=== PATIENT | female | born 1945 | race Caucasian/White ===

== ENCOUNTER 2018-05-06 19:14 | Inpatient (IN) | payer MEDICARE, OTHER ==
[~2018-05-06] VITALS: Ht 167.6 cm; Wt 63.6 kg
--- NOTE | 2018-05-06 19:23 | ED.ADGEN ---
Past History Past Medical History: Anxiety, CHF, Depression, Heart Disease, Other Past Surgical History: Hip Replacement, Other Adult General Chief Complaint Chief Complaint ".. I ve been vomiting.. and alana short of breath today..." HPI HPI Patient is a 72 year old female who presents with hx of nausea, vomiting and hypoxia.. Pt. a resident of [facility]. Pt. has not been able to eat today because of frequent vomiting. Pt. has hx of HTN, GERD, MS, Deconditioning, Depression, Anemia. Pt. follows with Dr. Dominguez as primary. Pt. not normally on oxygen. Pt. requires 4 Lit. NC to maintain sat 90%. Review of Systems Review of Systems Constitutional: Denies fever or chills [] Eyes: Denies change in visual acuity, redness, or eye pain [] HENT: Denies nasal congestion or sore throat [] Respiratory: Complaints of shortness of breath [] Cardiovascular: No additional information not addressed in HPI [] GI: Denies abdominal pain,, bloody stools or diarrhea []Nausea and vomiting : Denies dysuria or hematuria [] Musculoskeletal: Denies back pain or joint pain []Weakness- chronic Integument: Denies rash or skin lesions [] Neurologic: Denies headache, focal weakness or sensory changes [] Endocrine: Denies polyuria or polydipsia [] All other systems were reviewed and found to be within normal limits, except as documented in this note. Family History Family History Non-contributory Current Medications Current Medications Current Medications Medications (Trade) Dose Ordered Sig/Chadd Start Time Stop Time Status Last Admin Dose Admin Albuterol/ Ipratropium (Duoneb) 3 ml QID 05/07/18 09:00 UNV Enoxaparin Sodium (Lovenox 60mg Syringe) 60 mg BID 05/07/18 09:00 UNV Famotidine (Pepcid Vial) 20 mg 1X ONCE 05/06/18 19:30 05/06/18 19:40 DC 05/06/18 20:02 20 MG Furosemide (Lasix) 40 mg DAILY06 05/07/18 06:00 UNV Levofloxacin (Levaquin) 500 mg 1X ONCE 05/06/18 20:30 05/06/18 20:31 DC 05/06/18 20:39 500 MG Levofloxacin/ Dextrose 100 ml @ 500 mls/hr DAILY 05/07/18 09:00 UNV Lidocaine HCl (Xylocaine 2% Topical 30gm Tube) 30 luis m STK-MED ONCE 05/06/18 21:01 05/06/18 21:02 DC Methylprednisolone Sodium Succinate (SOLU-Medrol 40MG VIAL) 40 mg DAILY 05/07/18 09:00 UNV Methylprednisolone Sodium Succinate (SOLU-Medrol 125MG VIAL) 125 mg 1X ONCE 05/06/18 20:00 05/06/18 20:01 DC 05/06/18 20:02 125 MG Ondansetron HCl (Zofran Odt) 8 mg 1X ONCE 05/06/18 19:30 05/06/18 19:40 DC 05/06/18 20:02 8 MG Sodium Chloride 500 ml @ As Directed STK-MED ONCE 05/06/18 20:34 05/06/18 20:35 DC Vancomycin HCl (Vanco Per Pharmacy) 1 each PRN DAILY PRN 05/06/18 21:45 UNV Vancomycin HCl (Vancomycin) 1 gm STK-MED ONCE 05/06/18 20:34 05/06/18 20:35 DC Vancomycin HCl 1.75 gm/Sodium Chloride 500 ml @ 250 mls/hr 1X ONCE 05/06/18 20:45 05/06/18 22:44 05/06/18 20:39 250 MLS/HR Vancomycin HCl 1 gm/Sodium Chloride 250 ml @ 250 mls/hr 1X ONCE 05/06/18 20:30 05/06/18 20:32 DC See Nursing for home meds. Allergies Allergies Allergies Coded Allergies Type Severity Reaction Last Updated Verified Penicillins Allergy Intermediate 05/06/18 Yes silver sulfadiazine Allergy Intermediate 05/06/18 Yes Physical Exam Physical Exam Constitutional: moderately acute distress, non-toxic appearance. [] HENT: Normocephalic, atraumatic, bilateral external ears normal, oropharynx moist, no oral exudates, nose normal. Lips stained black? Fe Eyes: PERRLA, EOMI, conjunctiva pale, no discharge. [] Neck: Normal range of motion, no tenderness, supple, no stridor. [] Cardiovascular:Heart rate regular rhythm, no murmur [] Lungs & Thorax: Bilateral breath sounds clear to auscultation [] Abdomen: Bowel sounds normal, soft, no tenderness, no masses, no pulsatile masses. [Old surgical scars. No gross blood on rectal. ( Brown stool) Skin: Warm, dry, no erythema, no rash. Poor turgor. Back: No tenderness, no CVA tenderness. [] Extremities: No tenderness, no cyanosis, no clubbing, ROM intact, no edema. [ Arthritic changes. Scar lt.Hip. Neurologic: Alert and oriented X 3, no gross motor or sensory function deficits from baseline, Hx. of generalized weakness- MS. no gross focal deficits noted. [] Psychologic: Affect anxious, judgement normal, mood depressed. Current Patient Data Vital Signs Vital Signs Date Time Temp Pulse Resp B/P (MAP) Pulse Ox O2 Delivery O2 Flow Rate FiO2 05/06/18 20:26 90 18 167/90 (115) 93 Nasal Cannula 4.0 05/06/18 19:27 98.6 Lab Results Laboratory Tests Test 05/06/18 19:25 05/06/18 19:49 05/06/18 20:30 05/06/18 20:36 Blood pH 7.41 (7.35-7.45) Blood Gas PCO2 32 mmHg (35-45) L Blood Gas PO2 61 mmHg (71-100) L Blood Gas HCO3 21 mmol/L (22-26) L Arterial Bld O2 Saturation (Calc) 92 % (92-99) FiO2 36 % White Blood Count 29.5 x10^3/uL (4.0-11.0) H Red Blood Count 5.73 x10^6/uL (3.50-5.40) H Hemoglobin 16.5 g/dL (12.0-15.5) H Hematocrit 50.0 % (36.0-47.0) H Mean Corpuscular Volume 87 fL (79-100) Mean Corpuscular Hemoglobin 29 pg (25-35) Mean Corpuscular Hemoglobin Concent 33 g/dL (31-37) Red Cell Distribution Width 16.1 % (11.5-14.5) H Platelet Count 294 x10^3/uL (140-400) Neutrophils (%) (Auto) 91 % (31-73) H Lymphocytes (%) (Auto) 3 % (24-48) L Monocytes (%) (Auto) 6 % (0-9) Eosinophils (%) (Auto) 0 % (0-3) Basophils (%) (Auto) 0 % (0-3) Neutrophils # (Auto) 26.7 x10^3uL (1.8-7.7) H Lymphocytes # (Auto) 0.9 x10^3/uL (1.0-4.8) L Monocytes # (Auto) 1.7 x10^3/uL (0.0-1.1) H Eosinophils # (Auto) 0.0 x10^3/uL (0.0-0.7) Basophils # (Auto) 0.1 x10^3/uL (0.0-0.2) Platelet Estimate Pending Prothrombin Time 11.4 SEC (9.4-11.4) Prothrombin Time INR 1.1 (0.9-1.1) PTT 27 SEC (23-33) D-Dimer (Lilian) 3.32 mg/L (0.00-0.50) H Sodium Level 138 mmol/L (136-145) Potassium Level 3.4 mmol/L (3.5-5.1) L Chloride Level 100 mmol/L (98-107) Carbon Dioxide Level 23 mmol/L (21-32) Anion Gap 15 (6-14) H Blood Urea Nitrogen 28 mg/dL (7-20) H Creatinine 1.1 mg/dL (0.6-1.0) H Estimated GFR (Cockcroft-Gault) 48.6 Glucose Level 134 mg/dL (70-99) H Calcium Level 8.9 mg/dL (8.5-10.1) Magnesium Level 2.1 mg/dL (1.8-2.4) Total Bilirubin 1.3 mg/dL (0.2-1.0) H Direct Bilirubin 0.5 mg/dL (0.0-0.2) H Aspartate Amino Transferase (AST) 86 U/L (15-37) H Alanine Aminotransferase (ALT) 81 U/L (14-59) H Alkaline Phosphatase 177 U/L (46-116) H Creatine Kinase 86 U/L (26-192) Creatine Kinase MB (Mass) 0.5 ng/mL (0.0-3.6) Creatine Kinase MB Relative Index 0.6 % (0-4) Troponin I Quantitative 0.019 ng/mL (0-0.055) FQ-Upo-T-Type Natriuretic Peptide 4720 pg/mL (0-124) H Total Protein 8.5 g/dL (6.4-8.2) H Albumin 3.3 g/dL (3.4-5.0) L Lipase 338 U/L (73-393) Lactic Acid Level 3.2 mmol/L (0.4-2.0) H Urine Collection Type U cath Urine Color Yellow Urine Clarity Hazy Urine pH 6.5 Urine Specific [place] >=1.030 Urine Protein >100 mg/dl (NEG-TRACE) Urine Glucose (UA) Neg mg/dL (NEG) Urine Ketones (Stick) Trace mg/dL (NEG) Urine Blood Large (NEG) Urine Nitrite Neg (NEG) Urine Bilirubin Neg (NEG) Urine Urobilinogen Dipstick 2 mg/dL (0.2 mg/dL) Urine Leukocyte Esterase Trace (NEG) Urine RBC 20-40 /HPF (0-2) Urine WBC >40 /HPF (0-4) Urine Squamous Epithelial Cells Occ /LPF Urine Bacteria 0 /HPF (0-FEW) Urine Hyaline Casts Mod /HPF Urine Mucus Mod /LPF Urine Opiates Screen Neg (NEG) Urine Methadone Screen Neg (NEG) Urine Barbiturates Neg (NEG) Urine Phencyclidine Screen Neg (NEG) Urine Amphetamine/Methamphetamine Neg (NEG) Urine Benzodiazepines Screen Neg (NEG) Urine Cocaine Screen Neg (NEG) Urine Cannabinoids Screen Neg (NEG) Urine Ethyl Alcohol Neg (NEG) EKG EKG I interpretation of EKG shows a sinus rhythm at 88 bpm there is some bimodal P- wave's and a left axis. Some nonspecific inferior changes & anterior lateral changes.[] Radiology/Procedures Radiology/Procedures My interpretation acute abdomen shows decreased lung volumes. Increased cephalization consistent with CHF. Wide mediastinum. Cardiomegaly. Does have very distended gastric with food product and air. Has a hiatal hernia. Abdomen shows markedly degenerative joint changes of spine as well as some angulation and compression fractures . Patient has some isolated bowel loops. Does have findings of left hip hardware.[] Course & Med Decision Making Course & Med Decision Making Pertinent Labs and Imaging studies reviewed. (See chart for details) Discussed presentation,testing and tx. plan with Dr. Tom- Admit, further eval and tx. Pt. currently refusing cath and OG or NG for decompression. Pt. agrees to antibiotics and lasix. Pt. declining further radiograph- CT ect. at this time . [] Final Impression Final Impression 1. Respiratory Failure[]- Hypoxia 2. Hx. MS 3. Nausea and vomiting 4. MS 5. CHF- BNP 4720 6. Hypokalemia 7. Elevated BUN/Creat 8. Elev. Wilber. , Total and Direct, Alk. Phos. 9. Ileus- 10. Neg. Inspiratory F. = -9 Dragon Disclaimer Dragon Disclaimer This electronic medical record was generated, in whole or in part, using a voice recognition dictation system. THANH CONNER MD May 06, 2018 19:23
[2018-05-06] MEDS ORDERED: FAMOTIDINE 20 MG/2 ML VIAL IVP ONE (19:30)
[2018-05-06] MEDS ORDERED: ONDANSETRON ODT 4 MG TAB.RAPDIS PO ONE (19:30)
[2018-05-06 19:36] LABS: BGAS PH 7.41 (7.35-7.45)
--- NOTE | 2018-05-06 19:43 | EKG ---
[address] [address] Test Date: 2018-05-06 Test Time: 19:38:44 Pat Name: ILSA NGUYEN Department: Room: Gender: F Runner Man: DAVID : 1945 Requested By: THANH CONNER Order Number: [id number] Reading MD: Kael Gamez MD Measurements Intervals [place] Rate: 88 P: 28 [place]: 166 QRS: -22 QRSD: 82 T: 9 QT: 378 QTc: 461 Interpretive Statements SINUS RHYTHM PRIOR INFERIOR INFARCT Electronically Signed On 05-08-2018 9:11:44 CDT by Kael Gamez MD
[2018-05-06] MEDS ORDERED: methylPREDNISolone SOD SUCC PF 125 MG/2 ML VIAL. IV ONE (20:00)
[2018-05-06] MEDS: IV NORMAL SALINE 1,000ML 1,000 ML IV SCH (20:02)
[2018-05-06 20:12] LABS: BASO # 0.1 x10^3/uL (0.0-0.2); BASO % 0 % (0-3); EOS % 0 % (0-3); HEMOGLOBIN 16.5 g/dL (12.0-15.5); LYMPH # 0.9 x10^3/uL (1.0-4.8); LYMPH % 3 % (24-48); MEAN CORPUSCULAR HEMOGLOBIN 29 pg (25-35); MEAN CORPUSCULAR HGB CONC 33 g/dL (31-37); MEAN CORPUSCULAR VOLUME 87 fL (79-100); MONO # 1.7 x10^3/uL (0.0-1.1); MONO % 6 % (0-9); NEUT # 26.7 x10^3uL (1.8-7.7); NEUT % 91 % (31-73); PLATELET COUNT 294 x10^3/uL (140-400); RED BLOOD COUNT 5.73 x10^6/uL (3.50-5.40); RED CELL DISTRIBUTION WIDTH 16.1 % (11.5-14.5); WHITE BLOOD COUNT 29.5 x10^3/uL (4.0-11.0)
[2018-05-06] MEDS ORDERED: levoFLOXacin 500 MG TABLET PO ONE (20:30)
[2018-05-06] MEDS ORDERED: VANCOMYCIN 1 GM in IV NORMAL SALINE 250ML 250 ML IV ONE (20:30)
[2018-05-06] MEDS ORDERED: VANCOMYCIN 1 GM VIAL. ONE (20:34)
[2018-05-06] MEDS ORDERED: IV NORMAL SALINE 500ML 500 ML ONE (20:34)
[2018-05-06 20:42] LABS: ALBUMIN 3.3 g/dL (3.4-5.0); CALCIUM 8.9 mg/dL (8.5-10.1); CREATININE 1.1 mg/dL (0.6-1.0); DIRECT BILIRUBIN 0.5 mg/dL (0.0-0.2); GFR 48.6; MAGNESIUM 2.1 mg/dL (1.8-2.4); POTASSIUM 3.4 mmol/L (3.5-5.1); TOTAL BILIRUBIN 1.3 mg/dL (0.2-1.0); TOTAL PROTEIN 8.5 g/dL (6.4-8.2)
[2018-05-06] MEDS ORDERED: VANCOMYCIN 1.75 GM in IV NORMAL SALINE 500ML 500 ML IV ONE (20:45)
[2018-05-06] MEDS ORDERED: FUROSEMIDE 40 MG/4 ML VIAL IVP ONE (21:00)
[2018-05-06] MEDS ORDERED: LIDOCAINE 2% TOPICAL JELLY 30GM TUBE. TP ONE (21:01)
[2018-05-06 21:13] LABS: BACTERIA,URINE 0 /HPF (0-FEW); BILIRUBIN,URINE NEG (NEG); CLARITY,URINE HAZY; COLOR,URINE YELLOW; GLUCOSE,URINE NEG (NEG); HYALINE CASTS, URINE MOD /HPF; NITRITE,URINE NEG (NEG); RBC,URINE 20-40 /HPF (0-2); SQUAMOUS EPITHELIAL CELL,UR OCC /LPF; UROBILINOGEN,URINE 2 mg/dL (0.2 mg/dL); WBC,URINE >40 /HPF (0-4)
[2018-05-06 21:35] LABS: AMPHETAMINE/METHAMPHETAMINE NEG (NEG); BARBITURATES NEG (NEG); BENZODIAZEPINES NEG (NEG); CANNABINOIDS NEG (NEG); COCAINE NEG (NEG); METHADONE NEG (NEG); OPIATES NEG (NEG); PHENCYCLIDINE NEG (NEG)
[2018-05-06 22:31] LABS: % BANDS 17 % (0-9); % LYMPHS 2 % (24-48); % MONOS 10 % (0-10)
[2018-05-06 22:32] LABS: PLT ESTIMATE ADEQUATE (ADEQUATE)
[2018-05-06 23:06] LABS: FECAL OB PT NEGATIVE (NEG)
[2018-05-07] VITALS (14 sets, daily range): BP systolic 138–190; BP diastolic 65–89
[2018-05-07] MEDS ORDERED: FAMO20TA5 PO (02:21)
[2018-05-07] MEDS ORDERED: MINE120C TP (02:21)
[2018-05-07] MEDS ORDERED: CHOL100014 PO (02:21)
[2018-05-07] MEDS ORDERED: AMLO5TAB2 PO (02:21)
[2018-05-07] MEDS ORDERED: ACET325T9 PO (02:21)
[2018-05-07] MEDS ORDERED: FERR325T14 PO (02:21)
[2018-05-07] MEDS ORDERED: FERR-3 PO (02:21)
[2018-05-07] MEDS ORDERED: INUL2TAB4 PO (02:24)
[2018-05-07] MEDS ORDERED: OMEG-33 PO (02:24)
[2018-05-07] MEDS ORDERED: LISI-334 PO (02:47)
[2018-05-07] MEDS ORDERED: NYST1000 PO (02:47)
[2018-05-07] MEDS ORDERED: METO50TA29 PO (02:47)
[2018-05-07] MEDS ORDERED: LOPE2CAP88 PO (02:47)
[2018-05-07] MEDS ORDERED: MICO10PO MC (02:47)
[2018-05-07] MEDS ORDERED: NIAC500T PO (02:47)
[2018-05-07] MEDS ORDERED: PSYL0.5242 PO (02:50)
[2018-05-07] MEDS ORDERED: TRAM50TA PO (02:50)
[2018-05-07] MEDS ORDERED: PARO40TA61 PO (02:50)
[2018-05-07] MEDS ORDERED: ONDA4TAB7 PO (02:51)
[2018-05-07] MEDS: IV NORMAL SALINE 1,000ML 1,000 ML IV SCH (03:59)
[2018-05-07] MEDS: IPRATRPIUM/ALBUTEROL 0.5/2.5MG 3 ML NEBU. NEB SCH ×4 (05:43→21:05)
[2018-05-07] MEDS ORDERED: FUROSEMIDE 40 MG/4 ML VIAL IVP SCH (06:00)
[2018-05-07 06:16] LABS: BASO % 0 % (0-3); EOS % 0 % (0-3); HEMATOCRIT 44.1 % (36.0-47.0); HEMOGLOBIN 14.5 g/dL (12.0-15.5); LYMPH # 1.7 x10^3/uL (1.0-4.8); LYMPH % 6 % (24-48); MEAN CORPUSCULAR HEMOGLOBIN 29 pg (25-35); MEAN CORPUSCULAR HGB CONC 33 g/dL (31-37); MEAN CORPUSCULAR VOLUME 89 fL (79-100); MONO # 1.2 x10^3/uL (0.0-1.1); MONO % 4 % (0-9); NEUT # 24.9 x10^3uL (1.8-7.7); NEUT % 90 % (31-73); PLATELET COUNT 239 x10^3/uL (140-400); RED BLOOD COUNT 4.98 x10^6/uL (3.50-5.40); RED CELL DISTRIBUTION WIDTH 16.2 % (11.5-14.5); WHITE BLOOD COUNT 27.8 x10^3/uL (4.0-11.0)
[2018-05-07 06:26] LABS: CALCIUM 8.5 mg/dL (8.5-10.1); CREATININE 1.1 mg/dL (0.6-1.0); GFR 48.6; POTASSIUM 3.4 mmol/L (3.5-5.1)
[2018-05-07] MEDS ORDERED: POTASSIUM CHLORIDE 20 MEQ TABLET.ER. PO ONE (08:35)
--- NOTE | 2018-05-07 08:42 | RAD ---
Acute abdominal series with single view chest 05/06/2018 7:52 PM INDICATION: Hypoxia, abdominal pain COMPARISON: Chest radiograph March 17, 2013 TECHNIQUE: Single view of the chest, upright view of the abdomen and supine views of abdomen are provided. FINDINGS: The cardiomediastinal silhouette is within normal limits. There are no pleural effusions. There is no pulmonary vascular congestion. There is no pneumothorax. The lungs are clear. Mild chronic interstitial changes are visualized. There is no free intraperitoneal air. There is a moderate-sized hiatal hernia containing a gas-filled portion of the gastric antrum. Stomach is distended with gas and debris. There is a paucity of small bowel gas. Colonic bowel loops appear normal in caliber. Small volume stool is noted in the rectum. Levoconvex scoliosis of the thoracolumbar spine is noted. Advanced degenerative changes of the lumbar spine are noted. Left hip hardware is noted from prior fracture repair. IMPRESSION: Gaseous distention of the stomach with a moderate-sized hiatal hernia containing the gastric antrum. Findings may be seen with gastric outlet obstruction secondary to hernia. Further evaluation with CT may be of benefit. Mild interstitial changes are noted within the lungs, likely chronic. Electronically signed by: Jenny Mancilla MD (05/07/2018 8:39 AM) [facility]
[2018-05-07] MEDS ORDERED: LISINOPRIL 20 MG TABLET PO SCH (09:00)
[2018-05-07] MEDS ORDERED: NON FORMULARY ITEM (Inulin (Fiber Gummies) 2 GM) PO SCH (09:00)
[2018-05-07] MEDS ORDERED: ACETAMINOPHEN 325 MG TABLET PO PRN (09:00)
[2018-05-07] MEDS ORDERED: PSYLLIUM HUSK 0.52 GM PO SCH (09:00)
[2018-05-07] MEDS ORDERED: POTASSIUM CHLORIDE 20 MEQ/15 ML ORAL LIQUID. PO SCH (09:00)
[2018-05-07] MEDS: MINERAL OIL/PETROLATUM TOPICAL CREAM 113GM JAR. TP SCH (09:00)
[2018-05-07] MEDS ORDERED: METOPROLOL SUCC 24HR ER 50 MG TAB.ER.24H. PO SCH (09:00)
[2018-05-07] MEDS: MICONAZOLE NITRATE 2% TOPICAL POWDER 85GM JAR. TP SCH ×2 (09:00→20:41)
[2018-05-07] MEDS: OMEGA-3 FATTY ACIDS/FISH OIL 1,000 MG CAPSULE. PO SCH (09:10)
[2018-05-07] MEDS: amLODIPine BESYLATE 5 MG TABLET PO SCH (09:11)
[2018-05-07] MEDS: PARoxetine 20 MG TABLET PO SCH (09:12)
[2018-05-07] MEDS: ENOXAPARIN ** NOTE DOSE ** SYRINGE SQ SCH ×2 (09:12→20:46)
[2018-05-07] MEDS: methylPREDNISolone SOD SUCC PF 40 MG/ML VIAL. IV SCH (09:12)
[2018-05-07] MEDS: FAMOTIDINE 20 MG TABLET PO SCH (09:12)
[2018-05-07] MEDS: FERROUS SULFATE 325 MG TABLET. PO SCH (09:12)
[2018-05-07] MEDS ORDERED: ONDANSETRON ODT 4 MG TAB.RAPDIS PO PRN (09:15)
[2018-05-07] MEDS ORDERED: LOPERAMIDE 2 MG CAPSULE PO PRN (09:15)
[2018-05-07] MEDS: LACTOBACILLUS RHAMNOSUS GG 1 CAPSULE. PO SCH ×2 (09:30→20:45)
[2018-05-07] MEDS: VANCOMYCIN PER PHARMACY MC PRN (12:51)
[2018-05-07] MEDS ORDERED: NYSTATIN 100,000 UNITS/ML ORAL SUSPENSION 60ML BOTTLE. SWSW PRN (13:00)
[2018-05-07] MEDS ORDERED: VANCOMYCIN PER PHARMACY MC PRN (15:15)
[2018-05-07] MEDS ORDERED: IV NORMAL SALINE 500ML 500 ML IV ONE (15:15)
[2018-05-07] MEDS ORDERED: LABETALOL 100 MG/20 ML VIAL. IV PRN (15:30)
[2018-05-07] MEDS: POTASSIUM CL 20MEQ D5-0.2%NACL 1,000 ML IV SCH (15:51)
[2018-05-07] MEDS: MEROPENEM 500 MG in IV NORMAL SALINE 50ML 50 ML IV SCH ×2 (15:51→23:43)
[2018-05-07] MEDS: traMADol 50 MG TABLET PO PRN (20:40)
[2018-05-07] MEDS: NIACIN ER 500 MG TABLET.ER PO SCH (20:46)
[2018-05-07] MEDS: VANCOMYCIN 1 GM in IV NORMAL SALINE 250ML 250 ML IV SCH (21:47)
--- NOTE | 2018-05-07 22:28 | HP ---
ADMIT DATE: 05/06/2018 HISTORY OF PRESENT ILLNESS: The patient is a 72-year-old female patient, resident at [facility], who came to the Emergency Room with recurrent episode of nausea and vomiting. She has not been able to eat because of frequent vomiting. She apparently is known to have hypertension, gastroesophageal reflux disease, multiple sclerosis, deconditioning, depression, and anemia. She is not normally on oxygen, but required 4 liters of oxygen to maintain her oxygen saturation above 90%. She was evaluated in the Emergency Room and was admitted with acute hypoxic respiratory failure, recurrent bouts of nausea, vomiting, and multiple sclerosis. She was also dehydrated with elevated BUN and creatinine, and elevated liver enzyme. She was started on IV fluid, was given also antibiotic and was admitted for further evaluation. PAST MEDICAL HISTORY: Significant for hypertension, gastroesophageal reflux disease, multiple sclerosis, generalized weakness. PAST SURGICAL HISTORY: Significant for tonsillectomy, adenoidectomy, bilateral broken legs status post open reduction and internal fixation, appendectomy, cholecystectomy. ALLERGIES: She is allergic to PENICILLIN and SULFA drugs as well as SILVER SULFADIAZINE. MEDICATIONS: She is currently on following medications: She is on ferrous sulfate 325 mg once a day, nystatin suspension 5 mL swish and swallow every 6 hours, niacin 500 mg extended release or Niaspan one tablet at bedtime, omega-3 fatty acid 1 tablet 1000 mg daily. She is on metoprolol succinate 50 mg once a day, amlodipine besylate 5 mg once a day, lisinopril 20 mg once a day, tramadol 50 mg every 6 hours, acetaminophen 650 mg every 6 hours, paroxetine 40 mg daily, loperamide 2 mg as needed for diarrhea. She is on fiber gummies 2 grams chewable tablet once a day, psyllium husk 0.52 grams capsule once a day, ondansetron 4 mg every 8 hours, famotidine 20 mg once a day, miconazole nitrate twice a day, Eucerin cream applied topically daily, cholecalciferol (vitamin D3) 1000 International Units once a day. FAMILY HISTORY: She has one sister who was at the age of 82. Her mother because of a tumor and father because of alcohol cirrhosis. SOCIAL HISTORY: She is single, has no children. She does not smoke, drink alcohol or use any recreational drugs. REVIEW OF SYSTEMS: The patient denied any blurring of vision, cataract, glaucoma or macular degeneration. Denied any earache, tinnitus, or sensorineural deafness. Denied any nosebleeds, stuffy nose or postnasal drip. Denied any sore throat, sore tongue, toothache, hoarseness of voice or difficulty swallowing. Did complain of recurrent bouts of nausea and vomiting. Denied any abdominal pain. Denied any diarrhea or constipation. Did have bowel movement, it was semi-solid according to her yesterday. Denied any hematemesis, melena or hematochezia. She drank cranberry juice and the vomitus is purple in color. Denied any dysuria, frequency or hematuria. Denied any chest pain, shortness of breath, orthopnea, or paroxysmal nocturnal dyspnea. Denied any cough, phlegm or hemoptysis. Denied any chills, rigors or fever. PHYSICAL EXAMINATION: GENERAL: On arrival to the Emergency Room, she looked somewhat pale, but no jaundice, cyanosis, or thyromegaly. No jugular venous distension. No limb edema. VITAL SIGNS: Her heart rate was 86, blood pressure was 173/81, temperature was 98.4, respiratory rate was 18 and oxygen saturation was 91% on 4 liters of oxygen. HEAD, EYES, EARS, NOSE AND THROAT: Showed normocephalic, atraumatic. NECK: Supple. HEART: Showed normal first and second sounds. No gallop, rub or murmur. CHEST: Clear to auscultation. No crepitation or rhonchi. ABDOMEN: Distended, soft, and nontender. No guarding or rigidity. No organomegaly. Hernial orifice intact. Bowel sounds normal. NEUROLOGIC: She is awake, alert, responding appropriately. All her cranial nerves intact. She moves upper extremities to much good extent than lower extremities. She is mostly bedbound, chair bound. LABORATORY DATA: Her lab work on arrival to the Emergency Room showed that her serum sodium was 138, potassium 3.4, chloride 100, bicarbonate 23, anion gap of 15, BUN 28, creatinine 1.1, estimated GFR was 48 mL per minute. Her glucose 134, calcium was 8.9, magnesium 2.1. Total bilirubin was 1.3. AST, ALT, alkaline phosphatase are all elevated. Her CK-MB slightly elevated as well as beta natriuretic peptide at 4720. Her total protein was 8.5, albumin was 3.3. Lipase was slightly elevated at 338. TSH was normal at 0.358. Her white cell count was high at 29,500, hemoglobin 16.5, hematocrit 50, MCV 87 and platelet count of 294,000. Her prothrombin time was 11.4, INR 1.1, aPTT was 27 and D-dimer was 3.32 mg/dL. Urinalysis showed the urine was yellow, hazy with a pH of 6.5, specific gravity 1.030. There was large amount of protein, negative for glucose, trace of ketones, large amount of blood, negative for nitrite and bilirubin. There was trace of leukocyte esterase, 20-40 rbc's, more than 40 wbc's, and moderate amount of bacteria. Toxicology screen was negative. Her acute abdomen series showed that there is no free, the cardiomediastinal silhouette is within normal limits. There is no pleural effusion. There is no pulmonary vascular congestion. There is no pneumothorax. The lungs are clear. Mild chronic interstitial changes are visualized. There is no free intraperitoneal air. There is a moderate sized hiatal hernia containing a gas filled portion of the gastric antrum. Stomach is distended with gas and debris. There is paucity of small bowel gas. Colonic bowel loops appear normal in caliber. Small volume stool is noted in the rectum. Levoconvex scoliosis of the thoracolumbar spine is noted. Advanced degenerative changes of the lumbar spine are noted. Left hip hardware is noted from prior fracture repair. IMPRESSION: The patient has marked gaseous distention of the stomach with a moderate sized hiatal hernia containing the gastric antrum. Finding may be seen with gastric outlet obstruction secondary to hernia. Further evaluation with CT scan may be of benefit. Mild interstitial changes noted within the lungs, likely chronic. PLAN: The patient was admitted to continue with IV fluid and IV antibiotic, and decide on further management accordingly. ROB SILVEIRA MD DR: ZACARIAS/herminia JOB#: [id number] / [id number]
--- NOTE | 2018-05-07 22:28 | RAD ---
Examination: Bilateral Lower Extremity Venous Doppler Ultrasound History: Elevated d-dimer, hypoxia Comparison: None Procedure: Live scale, color flow 2D and spectal waveform analysis images are obtained with and without compression in the area of the common femoral vein, superficial femoral vein - femoral vein junction, main femoral vein (superficial femoral vein) and popliteal vein. Veins of the proximal calf are also imaged. Findings: There is normal duplex flow, color flow and compressibility of all visualized vein segments. No evidence of deep venous thrombus is present. The calf veins on the left could not be clearly identified. Impression: No evidence of DVT in the visualized bilateral lower extremity venous system. The calf veins on the left could not be clearly identified. Electronically signed by: Gen Solomon MD (05/07/2018 2:48 PM) [id number]
--- NOTE | 2018-05-07 22:28 | RAD ---
CT abdomen pelvis with oral contrast only Indication: Abdominal pain Technique: After administration of oral contrast only, CT imaging was performed of the abdomen and pelvis, multiplanar reconstruction images submitted. No intravenous contrast was given. One or more of the following individualized dose reduction techniques were utilized for this examination: 1. Automated exposure control 2. Adjustment of the mA and/or kV according to patient size 3. Use of iterative reconstruction technique. Comparison: None Findings: There are infiltrates of the lower lobes of lungs bilaterally, some air bronchograms greater on the right. There is moderate to large hiatal hernia, also contains a segment of the gastroduodenal junction although the majority of the body of the stomach is not contained in the hernia sac. There is relative wall thickening of the descending duodenum proximally. There is some gastric distention. However there is some oral contrast in segments of the nondilated small bowel, also to the level of the colon, no evidence of complete obstruction. There is no free air or free fluid. No focal abnormality is identified of the spleen, liver, pancreas. Gallbladder is not seen. There is large calculus in the left renal pelvis about 2.3 cm, mild left hydronephrosis. There are some smaller calculi of the inferior left kidney. There is mild left hydroureter greater proximally, no distal ureteral calculus identified. There is minimal gas in the urinary bladder lumen. There is no right hydronephrosis or renal calculus. There is artifact created by dynamic compression nail and intramedullary sandy of the proximal left femur. There is moderate lumbar levoscoliosis and multilevel lumbar degenerative disc disease. IMPRESSION: 1. There is moderate to large hiatal hernia, also includes a segment of the gastroduodenal junction although a majority of the body of the stomach is not contained in the hernia sac. There is nonspecific relative wall thickening of the proximal duodenum could be due to underlying inflammatory change/duodenitis. There is some gastric distention although no evidence of complete obstruction as there is contrast in segments of the small bowel and colon. 2. There is large left renal calculus in the renal pelvis with mild hydronephrosis, smaller calculi inferiorly of the left kidney. 3. There are infiltrates of the lower lobes of the lungs bilaterally greater on the right. 4. There is minimal gas in the urinary bladder lumen. This could be due to recent catheterization if corresponding history. If there is not been recent instrumentation, infection with gas-forming organism is not excluded. Electronically signed by: Rachid Ray MD (05/07/2018 5:28 PM) [id number]
--- NOTE | 2018-05-08 01:48 | PN ---
DATE: 05/06/2018 SUBJECTIVE: The patient is resting slightly propped up in bed, in no apparent distress. She continued to require oxygen 2 liters, she has no further episodes of nausea and vomiting. Denied any abdominal pain; however, she also did not pass any gas or bowel movement since yesterday. OBJECTIVE: GENERAL: When examining her, she looked well and was clearly in no apparent respiratory distress, pale, not jaundiced, cyanosis, or thyromegaly. No jugular venous distension. No lower limb edema. VITAL SIGNS: Her heart rate was 92, blood pressure was 151/70, temperature was 98, respiratory rate was 18, and oxygen saturation was 92% on 2 liters of oxygen. HEAD, EYES, EARS, NOSE AND THROAT: Normocephalic, atraumatic. NECK: Supple. HEART: Showed normal first and second heart sounds. No gallop, rub or murmur. CHEST: Clear to auscultation. No crepitation or rhonchi. ABDOMEN: Distended, soft, and nontender. NEUROLOGIC: She is awake, alert, responding appropriately. Cranial nerves intact. She moves upper extremities too much good extent than lower extremities. She is mostly bedbound, chair bound. Her intake over the last 24 hours was 1500. LABORATORY DATA: Her lab work this morning showed a white cell count 27,800, hemoglobin 14.5, hematocrit 44, MCV 89, and platelet count 239,000 with normal manual differential. Her chemistry showed a serum sodium 139, potassium 3.4, chloride 109, bicarbonate 27, anion gap of 7, BUN 32, creatinine 1.1, estimated GFR was 48 mL per minute. Her glucose 137, calcium was 8.5, lactic acid is down to 1.4. ASSESSMENT: 1. Recurrent bouts of nausea, vomiting with possible gastric outlet obstruction. 2. Acute hypoxic respiratory failure with marked leukocytosis, making the likelihood of aspiration pneumonia very high, given that she is not on any oxygen at the longterm, has longstanding multiple sclerosis with generalized weakness. PLAN: My plan is to discontinue the Lasix and give her a bolus of normal saline and continue with the D5 half normal with 20 mEq of potassium chloride. Continue with vancomycin and meropenem as she is allergic to PENICILLIN. I have arranged for her to have a CT scan of the abdomen and pelvis with oral contrast only and if there is no evidence of bowel obstruction or gastric outlet obstruction, we will advance her diet and repeat all her lab works tomorrow and hopefully eventually transfer her back to [facility]. ROB SILVEIRA MD DR: ZACARIAS/herminia JOB#: [id number] / [id number]
[2018-05-08 05:01] VITALS: BP 152/78
[2018-05-08] MEDS: IPRATRPIUM/ALBUTEROL 0.5/2.5MG 3 ML NEBU. NEB SCH ×4 (05:31→20:53)
[2018-05-08 06:54] LABS: HEMATOCRIT 35.7 % (36.0-47.0); HEMOGLOBIN 11.7 g/dL (12.0-15.5); RED BLOOD COUNT 4.06 x10^6/uL (3.50-5.40); RED CELL DISTRIBUTION WIDTH 15.8 % (11.5-14.5); WHITE BLOOD COUNT 16.5 x10^3/uL (4.0-11.0)
[2018-05-08 07:00] LABS: ALBUMIN 2.4 g/dL (3.4-5.0); ALBUMIN/GLOBULIN RATIO 0.6 (1.0-1.7); CALCIUM 8.1 mg/dL (8.5-10.1); GFR 54.2; POTASSIUM 3.7 mmol/L (3.5-5.1); TOTAL BILIRUBIN 0.6 mg/dL (0.2-1.0); TOTAL PROTEIN 6.2 g/dL (6.4-8.2)
[2018-05-08] MEDS: MEROPENEM 500 MG in IV NORMAL SALINE 50ML 50 ML IV SCH ×3 (08:37→23:39)
[2018-05-08] MEDS: methylPREDNISolone SOD SUCC PF 40 MG/ML VIAL. IV SCH (08:38)
[2018-05-08] MEDS: amLODIPine BESYLATE 5 MG TABLET PO SCH (08:41)
[2018-05-08] MEDS: MINERAL OIL/PETROLATUM TOPICAL CREAM 113GM JAR. TP SCH (09:00)
[2018-05-08] MEDS: FERROUS SULFATE 325 MG TABLET. PO SCH (09:00)
[2018-05-08] MEDS: FAMOTIDINE 20 MG TABLET PO SCH (09:00)
[2018-05-08] MEDS: PARoxetine 20 MG TABLET PO SCH (09:00)
[2018-05-08] MEDS: ENOXAPARIN ** NOTE DOSE ** SYRINGE SQ SCH ×2 (09:00→20:49)
[2018-05-08] MEDS: OMEGA-3 FATTY ACIDS/FISH OIL 1,000 MG CAPSULE. PO SCH (09:00)
[2018-05-08] MEDS: MICONAZOLE NITRATE 2% TOPICAL POWDER 85GM JAR. TP SCH ×2 (09:00→20:51)
[2018-05-08] MEDS: LACTOBACILLUS RHAMNOSUS GG 1 CAPSULE. PO SCH ×2 (09:00→20:48)
[2018-05-08] MEDS: POTASSIUM CL 20MEQ D5-0.2%NACL 1,000 ML IV SCH ×2 (10:33→20:47)
[2018-05-08 11:13] VITALS: BP 169/79
[2018-05-08 15:10] VITALS: BP 160/78
[2018-05-08 19:38] VITALS: BP 155/75
[2018-05-08] MEDS: traMADol 50 MG TABLET PO PRN (20:49)
[2018-05-08] MEDS: NIACIN ER 500 MG TABLET.ER PO SCH (20:49)
[2018-05-08 21:07] LABS: VANC TR 9.9 mcg/mL (10.0-20.0)
[2018-05-08] MEDS: VANCOMYCIN 1 GM in IV NORMAL SALINE 250ML 250 ML IV SCH (22:01)
[2018-05-08 22:18] VITALS: BP 167/73
[2018-05-08 23:05] VITALS: BP 154/81
--- NOTE | 2018-05-08 23:12 | PN ---
DATE: 05/08/2018 SUBJECTIVE: The patient is resting slightly propped up in bed, no apparent distress. She is awake, alert. Yesterday, she stated that she does not want to this anymore. She does not want to get in and out of the hospitals and even and plan would like to go on hospice; however, I explained her today that the CT scan did not show any obstruction; however, it did show that she has bilateral lung infiltrate, that is the reason why she has pneumonia and required oxygen by nasal cannula as she normally does not. PHYSICAL EXAMINATION: GENERAL: When I examined her, she looked pale, but no jaundice, cyanosis, or thyromegaly. No jugular venous distension. No lower limb edema. VITAL SIGNS: Her heart rate was 77, blood pressure 152/78, temperature was 98.3, respiratory rate was 20, and oxygen saturation was 92% on 2 liters of oxygen by nasal cannula. HEENT: Examination of the head, eyes, ears, nose and throat showed normocephalic, atraumatic. NECK: Supple. HEART: Showed normal first and second heart sounds with no gallop, rub or murmur. CHEST: Clear to auscultation. No crepitation or rhonchi. ABDOMEN: Distended, soft, nontender. No guarding or rigidity. No organomegaly. Her hernial orifices are intact. Bowel sounds normal. NEUROLOGIC: She is awake, alert. All her cranial nerves are intact. She moves upper extremities somewhat much to get extent than the lower extremities. She is mostly bedbound, chair bound. Her intake over the last 24 hours was 1500. No output was recorded. LABORATORY DATA: Her lab work as of this morning showed a white cell count 16,500, hemoglobin 11.7, hematocrit 36, MCV 88, and platelet count of 153,000. Serum sodium was 136, potassium 3.7, chloride 104, bicarbonate 26, anion gap of 6, BUN 36, creatinine 1, estimated GFR was 54 mL per minute. Her glucose was 102, calcium was 8.1. Total bilirubin, AST, ALT, alkaline phosphatase was normal. Total protein was 6.2, albumin 2.4. Her prothrombin time was 11.4, INR 1.1, aPTT was 27, and D-dimer was 3.32. Urinalysis showed that she has more than 40 WBCs, trace of leukocyte esterase, negative for nitrites. ASSESSMENT: 1. Recurrent bouts of nausea, vomiting with possible gastric outlet obstruction; however, CT scan did not show large hiatus hernia including part of the stomach, but no gastric outlet obstruction. 2. Acute hypoxic respiratory failure with marked leukocytosis. 3. Bilateral lung infiltrate most likely due to aspiration pneumonia. 4. Longstanding multiple sclerosis, generalized weakness. 5. Possible urinary tract infection. PLAN: I had a lengthy discussion again this morning with her and that the patient wanted to continue treatment and said that she does not want any hospice and we will continue with IV antibiotic in the form of levofloxacin and vancomycin as well as meropenem and if the cultures remain negative tomorrow, we will discontinue the vancomycin, continue with meropenem and levofloxacin. ROB SILVEIRA MD DR: ZACARIAS/herminia JOB#: [id number] / [id number]
[2018-05-09] MEDS: VANCOMYCIN PER PHARMACY MC PRN (00:49)
[2018-05-09] MEDS: IPRATRPIUM/ALBUTEROL 0.5/2.5MG 3 ML NEBU. NEB SCH ×4 (05:26→20:13)
[2018-05-09 05:32] VITALS: BP 156/76
[2018-05-09 07:12] LABS: HEMATOCRIT 36.7 % (36.0-47.0); HEMOGLOBIN 12.1 g/dL (12.0-15.5); RED BLOOD COUNT 4.18 x10^6/uL (3.50-5.40); RED CELL DISTRIBUTION WIDTH 16.2 % (11.5-14.5); WHITE BLOOD COUNT 16.8 x10^3/uL (4.0-11.0)
[2018-05-09 07:13] LABS: CALCIUM 8.3 mg/dL (8.5-10.1); CREATININE 0.8 mg/dL (0.6-1.0); GFR 70.1
[2018-05-09] MEDS: MINERAL OIL/PETROLATUM TOPICAL CREAM 113GM JAR. TP SCH (09:00)
[2018-05-09] MEDS: MEROPENEM 500 MG in IV NORMAL SALINE 50ML 50 ML IV SCH ×3 (09:33→23:06)
[2018-05-09] MEDS: LACTOBACILLUS RHAMNOSUS GG 1 CAPSULE. PO SCH ×2 (09:35→19:39)
[2018-05-09] MEDS: PARoxetine 20 MG TABLET PO SCH (09:35)
[2018-05-09] MEDS: OMEGA-3 FATTY ACIDS/FISH OIL 1,000 MG CAPSULE. PO SCH (09:35)
[2018-05-09] MEDS: FAMOTIDINE 20 MG TABLET PO SCH (09:36)
[2018-05-09] MEDS: amLODIPine BESYLATE 5 MG TABLET PO SCH (09:37)
[2018-05-09] MEDS: FERROUS SULFATE 325 MG TABLET. PO SCH (09:38)
[2018-05-09] MEDS: methylPREDNISolone SOD SUCC PF 40 MG/ML VIAL. IV SCH (09:38)
[2018-05-09] MEDS: MICONAZOLE NITRATE 2% TOPICAL POWDER 85GM JAR. TP SCH ×2 (09:39→19:40)
[2018-05-09] MEDS: ENOXAPARIN ** NOTE DOSE ** SYRINGE SQ SCH (09:39)
[2018-05-09 11:06] VITALS: BP 150/72
[2018-05-09 15:04] VITALS: BP 158/66
--- NOTE | 2018-05-09 15:19 | PN ---
DATE: 05/09/2018 SUBJECTIVE: The patient is resting slightly propped up in bed, in no apparent respiratory distress. She is definitely feeling much better, more awake, alert, very cooperative and compliant with her care and medication. OBJECTIVE: GENERAL: When I examined her, she looked pale, no jaundice or cyanosis. No lymphadenopathy, no thyromegaly. No jugular venous distension. No lower limb edema. VITAL SIGNS: Her heart rate was 75, blood pressure was 156/76, temperature was 98.7, respiratory rate was 20 and oxygen saturation was 92% on 2 L of oxygen. HEAD, EYES, EARS, NOSE AND THROAT: Normocephalic, atraumatic. NECK: Supple. HEART: Showed normal first and second sounds. No gallop, rub or murmur. CHEST: Clear to auscultation. No crepitation or rhonchi. ABDOMEN: Distended, soft, nontender. No guarding or rigidity. No organomegaly. Hernial orifice intact. Bowel sounds normal. NEUROLOGIC: She was awake, alert, responding appropriately. All cranial nerves intact. She moves extremities without difficulty. She moves her upper extremities without difficulty. She has longstanding multiple sclerosis. She is mostly bedbound, chair bound. Her intake over the last 24 hours was 1000. No output was recorded. LABORATORY DATA: Her lab work this morning shows a white cell count of 16,800, hemoglobin 12, hematocrit 36, MCV 88 and platelet count of 176,000. Her chemistry showed a serum sodium 136, potassium 4, chloride 105, bicarbonate 26, anion gap of 4, BUN 25, creatinine 0.8, estimated GFR was 70 mL per minute. Her glucose 112, calcium was 8.3. Total bilirubin, AST, ALT, alkaline phosphatase were normal. Total protein 6.2, albumin 2.4. ASSESSMENT: 1. Recurrent bouts of nausea, vomiting with possible gastric outlet obstruction; however, CT scan showed only large hiatal hernia that included part of the stomach with no gastric outlet obstruction. The patient is tolerating her food without any further episodes of nausea and vomiting. 2. Acute hypoxic respiratory failure with marked leukocytosis. 3. Bilateral lung infiltrate, most likely to aspiration pneumonia. 4. Longstanding multiple sclerosis, generalized weakness. 5. Possible urinary tract infection; however, urine culture has grown only 10,000-25,000 colony forming units per mL of Proteus mirabilis. Her blood culture is so far negative. PLAN: My plan is to continue with IV antibiotic. Continue with IV fluid and hopefully tomorrow, we can discontinue if the cultures are negative and she can hopefully be discharged back to [place] on oral levofloxacin. ROB SILVEIRA MD DR: ZACARIAS/herminia JOB#: [id number] / [id number]
[2018-05-09] MEDS ORDERED: VANCOMYCIN 1 GM in IV NORMAL SALINE 250ML 250 ML IV SCH (16:00)
[2018-05-09] MEDS: NIACIN ER 500 MG TABLET.ER PO SCH (19:39)
[2018-05-09] MEDS: POTASSIUM CL 20MEQ D5-0.2%NACL 1,000 ML IV SCH ×2 (19:39→19:40)
[2018-05-09 19:40] VITALS: BP 164/79
[2018-05-09] MEDS ORDERED: levoFLOXacin 500 MG TABLET PO SCH (21:00)
[2018-05-09 23:00] VITALS: BP 156/87
[2018-05-10] MEDS: IPRATRPIUM/ALBUTEROL 0.5/2.5MG 3 ML NEBU. NEB SCH ×2 (05:40→10:53)
[2018-05-10 06:23] LABS: HEMATOCRIT 37.9 % (36.0-47.0); HEMOGLOBIN 12.7 g/dL (12.0-15.5); RED BLOOD COUNT 4.35 x10^6/uL (3.50-5.40); WHITE BLOOD COUNT 14.7 x10^3/uL (4.0-11.0)
[2018-05-10 06:29] LABS: CALCIUM 8.4 mg/dL (8.5-10.1); CREATININE 0.7 mg/dL (0.6-1.0); GFR 81.8; POTASSIUM 3.8 mmol/L (3.5-5.1)
[2018-05-10 06:35] VITALS: BP 160/88
[2018-05-10] MEDS: MEROPENEM 500 MG in IV NORMAL SALINE 50ML 50 ML IV SCH (08:22)
[2018-05-10] MEDS: FERROUS SULFATE 325 MG TABLET. PO SCH (08:24)
[2018-05-10] MEDS: OMEGA-3 FATTY ACIDS/FISH OIL 1,000 MG CAPSULE. PO SCH (08:24)
[2018-05-10] MEDS: LACTOBACILLUS RHAMNOSUS GG 1 CAPSULE. PO SCH (08:24)
[2018-05-10] MEDS: FAMOTIDINE 20 MG TABLET PO SCH (08:24)
[2018-05-10] MEDS: PARoxetine 20 MG TABLET PO SCH (08:24)
[2018-05-10] MEDS: amLODIPine BESYLATE 5 MG TABLET PO SCH (08:24)
[2018-05-10] MEDS: MICONAZOLE NITRATE 2% TOPICAL POWDER 85GM JAR. TP SCH (08:26)
[2018-05-10] MEDS: MINERAL OIL/PETROLATUM TOPICAL CREAM 113GM JAR. TP SCH (08:26)
[2018-05-10] MEDS: POTASSIUM CL 20MEQ D5-0.2%NACL 1,000 ML IV SCH (08:32)
[2018-05-10] MEDS ORDERED: predniSONE 10 MG TABLET PO SCH (09:00)
[2018-05-10] MEDS ORDERED: ENOXAPARIN 40 MG/0.4 ML SYRINGE. SQ SCH (09:00)
--- NOTE | 2018-05-10 10:26 | DS ---
DATE OF DISCHARGE: 05/10/2018 HOSPITAL COURSE: The patient is a 72-year-old female patient, resident at [facility], who was admitted with recurrent bouts of nausea, vomiting. She also was extremely hypoxic, requiring 4 liters of oxygen. Normally, she is not on any oxygen. Further evaluation showed that she has bilateral pneumonia, questionable urinary tract infection and acute kidney injury and marked leukocytosis. She was treated with IV fluid, IV antibiotic and oxygen supplementation and did well. She has been afebrile throughout her stay here. Her oxygen requirement has improved gradually from 4 liters. She is now maintaining her oxygen saturation 91-92% on room air. Her white cell count is trending down from 29,000-14,000 and a decision was made to discharge her back to [facility] to continue with the treatment with oral antibiotic. PHYSICAL EXAMINATION: GENERAL: When I saw her today, she looked well and was clearly in no apparent respiratory distress, slightly pale, but no jaundice, cyanosis, or thyromegaly. No jugular venous distension. No limb edema. VITAL SIGNS: Her heart rate was 96, blood pressure 164/79, temperature was 98.3, respiratory rate was 18, and oxygen saturation was 92% on room air. HEAD, EYES, EARS, NOSE AND THROAT: Normocephalic, atraumatic. NECK: Supple. HEART: Showed normal first and second sounds. No gallop, rub or murmur. CHEST: Showed central trachea, equal bilateral chest expansion, air entry, vesicular sounds, very few crepitation mostly posteriorly. I could not appreciate any rhonchi. ABDOMEN: Distended, soft, nontender. NEUROLOGIC: She is awake, alert, responding appropriately. Her cranial nerves intact. She moves upper extremities to much good extent than lower extremities. She has longstanding multiple sclerosis with functional paraplegia. She is mostly bedbound, chair bound. Her intake was 1000, no output was recorded. LABORATORY DATA: As of this morning, her white cell count was 14,700, hemoglobin 13, hematocrit 39, MCV 87 and platelet count of 180,000. Her serum sodium was 137, potassium 3.8, chloride 103, bicarbonate 28, anion gap of 6, BUN 21, creatinine 0.7, estimated GFR was 82 mL per minute. Her glucose was 96, her calcium was 8.4, her prothrombin time was 11.4, INR 1.1, aPTT was 27. D-dimer was 3.32. Urinalysis showed the urine was yellow, hazy with a pH of 6.5, specific gravity of 1.030. There was moderate amount of protein, negative for glucose, trace amount of ketones, large amount of blood and trace leukocyte esterase. There were 20-40 rbc's, more than 40 wbc's, and no bacteria. Her toxic screen was negative. Her blood cultures are so far negative and her urine culture has grown Proteus mirabilis sensitive to cephalosporins, ampicillin and SULFA DRUGS. Unfortunately, she is allergic to PENICILLIN and SULFA DRUGS. DISCHARGE MEDICATIONS: [facility] [place] to continue on cefuroxime 250 mg twice a day for 7 days, Flagyl 250 mg 3 times a day for 7 days, continue on Tylenol 650 mg every 6 hours, amlodipine 5 mg once a day, cholecalciferol, vitamin D 1000 units once a day, famotidine 20 mg once a day, ferrous sulfate 325 mg once a day, Fiber Gummies 2 grams chewable tablet once a day, lisinopril 20 mg once a day, loperamide 2 mg every 4 hours as needed for diarrhea, metoprolol succinate 50 mg once a day, miconazole nitrate applied topically twice a day, Eucerin cream applied topically twice a day, Niaspan 500 mg extended release tablet once a day at bedtime, nystatin 100,000 units per 1 mL oral suspension every 6 hours, omega 3 fatty acid 1 capsule once a day, ondansetron for Zofran 4 mg every 8 hours, paroxetine 40 mg once a day, psyllium husk 0.52 grams p.o. daily, tramadol 50 mg every 8 hours. FINAL DISCHARGE DIAGNOSES: 1. Recurrent bouts of nausea, vomiting with questionable gastric outlet obstruction; however, CT scan showed only large hiatal hernia that included part of the stomach with no gastric outlet obstruction. The patient is tolerating her food without any further episodes of nausea or vomiting. 2. Acute hypoxic respiratory failure, requiring oxygen supplementation that has improved. She is now on room air, maintaining her oxygen saturation at 91-92%. 3. Healthcare-associated pneumonia with bilateral lung infiltrate, likely to aspiration pneumonia. 4. Longstanding multiple sclerosis with generalized weakness. 5. Urinary tract infection with growth of Proteus mirabilis. PLAN: To be discharged back to continue with oral antibiotic, tapering course of steroids and all her other medications. ROB SILVEIRA MD DR: ZACARIAS/herminia JOB#: [id number] / [id number]
[2018-05-10 11:05] VITALS: BP 164/82
[2018-05-10 14:54] VITALS: BP 137/78
[2018-05-12 12:31] LABS: % SEGS 71 % (35-66)
== END 2018-05-10 15:35 | DRG 177 ==
LOC: ER 19:14 → ICU 21:00 → 1 SOUTH 05-07 18:03
PROVIDERS: ADMIT Internal Medicine; ATTEND Internal Medicine
DX: J69.0 Pneumonitis due to inhalation of food and vomit (principal); J96.01 Acute respiratory failure with hypoxia; N39.0 Urinary tract infection, site not specified; K56.7 Ileus, unspecified; N17.9 Acute kidney failure, unspecified; E86.0 Dehydration; F32.9 Major depressive disorder, single episode, unspecified; G35 Multiple sclerosis; I11.0 Hypertensive heart disease with heart failure; I50.9 Heart failure, unspecified; K21.9 Gastro-esophageal reflux disease without esophagitis; K44.9 Diaphragmatic hernia without obstruction or gangrene; D72.829 Elevated white blood cell count, unspecified; B96.4 Proteus (mirabilis) (morganii) as the cause of diseases classified elsewhere; Y95 Nosocomial condition; Z96.649 Presence of unspecified artificial hip joint; F41.9 Anxiety disorder, unspecified; E87.6 Hypokalemia; Z90.49 Acquired absence of other specified parts of digestive tract; Z90.89 Acquired absence of other organs; Z88.0 Allergy status to penicillin; Z88.2 Allergy status to sulfonamides; Z79.899 Other long term (current) drug therapy
CPT/HCPCS: 36415; 74022; 74176; 80048; 80053; 80076; 80202; 80307; 81001; 82274; 82553; 82803; 83605; 83690; 83735; 83880; 84443; 84484; 85007; 85025; 85027; 85045; 85379; 85610; 85730; 86850; 86900; 86901; 87040; 87086; 87186; 87641; 93005; 93970; 94640; 96365; 96366; 96375; J1650; J1940; J1956; J2185; J2920; J2930; J3370; J3490; J7040; J7050; J7512; J7620; Q0162; S0028; 99285-25; G0479; J7030

== ENCOUNTER 2021-05-04 12:46 | Emergency (ER) | payer OTHER ==
[~2021-05-04] VITALS: Ht 320 cm; Wt 63.0 kg
[~2021-05-04 12:46] MED LIST: ACET325T9 PO; AMLO-186 PO; CHOL100014 PO; FAMO20TA5 PO; FERR-3 PO; FERR325T14 PO; INUL2TAB4 PO; LISI20TA18 PO; LOPE-101 PO; METO50TA29 PO; MICO10PO MC; MINE120C TP; NIAC500T PO; NYST1000 PO; OMEG-33 PO; ONDA4TAB7 PO; PARO40TA61 PO; PSYL0.5242 PO; TRAM50TA PO
--- NOTE | 2021-05-04 12:57 | PHYS DOC ---
Past History Past Medical History: Anxiety, CHF, Depression, Heart Disease, Other Past Surgical History: Hip Replacement, Other Alcohol Use: None Drug Use: None Adult General HPI HPI Patient is a 75-year-old female presenting from local intermediate for decreased urine output. Reports this is been going on for past 2 or 3 days, admits to poor p.o. intake and subsequent urination with last known urination occurring at least 48 hours prior to arrival. She denies any trauma, recent sickness or major change in health. She states she thinks her medications have all been stable. Has history of multiple sclerosis, hypertension, GERD, major depressive disorder, anxiety Per accompanying documents. Remaining history is somewhat limited due to history of cognitive communication deficit. She denies prior history of hemodialysis or needing to see any kidney doctors, her paper states she is full CODE STATUS. Per EMS report, intermediate was unable to obtain IV access and subsequently could not straight cath patient and so she was sent to our ER for evaluation Review of Systems Review of Systems Fourteen body systems of review of systems have been reviewed. See HPI for pertinent positives and negative responses, other ruby all other systems are negative, non-pertinent or non-contributory Allergies Allergies Allergies Coded Allergies Type Severity Reaction Last Updated Verified Penicillins Allergy Intermediate 05/06/18 Yes silver sulfadiazine Allergy Intermediate 05/06/18 Yes I S O L A T I O N *CONTACT* Allergy Unknown 05/10/18 Yes Physical Exam Physical Exam Constitutional: Age-appropriate female appearing mildly disheveled in no acute distress HENT: Normocephalic, atraumatic, bilateral external ears normal, oropharynx exquisitely dry, no oral exudates, nose normal. Eyes: PERRLA, EOMI, conjunctiva normal, no discharge. Neck: Normal range of motion, no tenderness, supple, no stridor. Cardiovascular: Heart rate regular, sinus rhythm, 4+ holosystolic murmur Lungs & Thorax: No respiratory distress with bibasilar crackles Abdomen: Bowel sounds normal, distended with large appearing liver on palpation, positive fluid wave, no masses, no pulsatile masses. Nonsurgical abdomen, no peritoneal signs : External genitalia chapped and chafed with no obvious vaginal discharge Skin: Warm, dry, no erythema, no rash. Back: No tenderness, no CVA tenderness. Extremities: No tenderness, no cyanosis, no clubbing, ROM intact, no edema. Neurologic: Alert and oriented X 3, grossly normal motor & sensory function, no focal deficits noted. Psychologic: Agitated affect and mood Current Patient Data Lab Results Laboratory Tests Test 05/04/21 12:57 05/04/21 14:00 Platelet Estimate Adequate Hypochromasia Present Poikilocytosis Present Anisocytosis Present Microcytosis Present Target Cells Present White Blood Count 10.6 x10^3/uL Red Blood Count 4.28 x10^6/uL Hemoglobin 10.1 g/dL Hematocrit 32.2 % Mean Corpuscular Volume 75 fL Mean Corpuscular Hemoglobin 24 pg Mean Corpuscular Hemoglobin Concent 31 g/dL Red Cell Distribution Width 25.2 % Platelet Count 237 x10^3/uL Neutrophils (%) (Auto) 77 % Lymphocytes (%) (Auto) 9 % Monocytes (%) (Auto) 12 % Eosinophils (%) (Auto) 0 % Basophils (%) (Auto) 1 % Neutrophils # (Auto) 8.1 x10^3uL Lymphocytes # (Auto) 1.0 x10^3/uL Monocytes # (Auto) 1.3 x10^3/uL Eosinophils # (Auto) 0.0 x10^3/uL Basophils # (Auto) 0.1 x10^3/uL Sodium Level 142 mmol/L Potassium Level 4.1 mmol/L Chloride Level 109 mmol/L Carbon Dioxide Level 19 mmol/L Anion Gap 14 Blood Urea Nitrogen 37 mg/dL Creatinine 5.3 mg/dL Estimated GFR (Cockcroft-Gault) 7.8 BUN/Creatinine Ratio 7 Glucose Level 91 mg/dL Calcium Level 7.7 mg/dL Total Bilirubin 1.3 mg/dL Aspartate Amino Transf (AST/SGOT) 38 U/L Alanine Aminotransferase (ALT/SGPT) 11 U/L Alkaline Phosphatase 102 U/L Total Protein 6.5 g/dL Albumin 2.4 g/dL Albumin/Globulin Ratio 0.6 Current Medications Medications (Trade) Dose Ordered Sig/Chadd Route PRN Reason Start Time Stop Time Status Last Admin Dose Admin Sodium Chloride 1,000 ml @ 150 mls/hr 1X ONCE IV 05/04/21 15:15 05/04/21 21:54 EKG EKG [] Radiology/Procedures Radiology/Procedures EXAMINATION: CT ABDOMEN+PELVIS WO CLINICAL HISTORY: URINARY RETENTION, ABD DISTENTION TECHNIQUE: Non-IV contrast imaging of the abdomen and pelvis was performed using standard technique, scanning from just above the dome of the diaphragm to the symphysis pubis. Unenhanced imaging is limited for the evaluation of some intra-abdominal and pelvic pathology. CT Dose Reduction Employed: One or more of the following individualized dose reduction techniques were utilized for this examination: 1. Automated exposure control 2. Adjustment of the mA and/or kV according to patient size 3. Use of iterative reconstruction technique. COMPARISON: 05/17/2018 FINDINGS: Coronary atherosclerotic calcification, incompletely evaluated. Mild bibasilar subsegmental atelectasis and/or scarring. Small nodular liver, consistent with cirrhosis. Gallbladder not definitively visualized and likely surgically absent. Pancreas, spleen, and adrenal glands unremarkable. 2.1 cm calculus in the left renal pelvis with moderate caliectasis versus renal sinus cyst in the upper pole, similar to prior study. Additional smaller left renal calculi inferior only. Diffuse left renal cortical atrophy with small cyst in the mid to lower pole. Stable appearance of the right kidney. Decompressed urinary bladder suboptimally evaluated. Uterus and adnexa unremarkable. No dilated bowel. Appendix not definitively visualized. Moderate to large hiatal hernia. Moderate ascites throughout the abdomen with extension into the hiatal hernia. Arterial atherosclerotic calcification without aneurysm. Mild/moderate anasarca. Multilevel thoracolumbar degenerative changes and mild/moderate levoconvex curvature in the lumbar spine. Diffuse generalized osteopenia. Sclerotic density in the superolateral T10 vertebral body, similar to prior study. Partially visualized subtle medullary sandy in the left hip. IMPRESSION: Morphologic changes of the liver consistent with cirrhosis and moderate ascites and anasarca. Multiple additional nonacute findings as described. Electronically signed by: Amanuel Arguelles DO (05/04/2021 2:17 PM) [facility] Heart Score C/O Chest Pain: No Risk Factors: Risk Factors: DM, Current or recent (<one month) smoker, HTN, HLP, family history of CAD, obesity. Risk Scores: Risk Factors: DM, Current or recent (<one month) smoker, HTN, HLP, family history of CAD, obesity. Course & Med Decision Making Course & Med Decision Making ABCs unremarkable. HPI concerning for fluid dehydration with subsequent decreased urine output. Physical examination nonconcerning. ER work-up concerning for liver cirrhosis and ascites which patient does not have history of? Also concern for SIERRA likely due to severe dehydration Bladder scan was attempted but reading distorted due to abdominal ascites. Patient deferred straight cath and asked for Garza catheter knowing risks of doing so. Garza catheter was placed in adequate position without any significant urine output I discussed case with hospitalist at [facility] and my concern that patient will need nephrology consultation. Patient transfer was accepted under the care of Dr. Tom I updated patient on proposed plan of care that included hospital transfer to [place] for admission and she was amenable. All questions and concerns addressed prior to hospital transfer Critical Care Time This patient required critical care. Due to the fact that the patient required a significant amount of one on one physician - patient contact time, ordering and review of studies, arranging urgent treatment with development of a management plan, evaluation of patients response to treatment with frequent reassessments, and discussions with other providers this patient required 35 minutes of critical care time. Critical care time was indicated due to the inherent instability and/or potential for instability in this patient. The critical care time that is allocated to this patient is above and beyond any time spent on any other billable procedures performed on this patient. Dragon Disclaimer Dragon Disclaimer This electronic medical record was generated, in whole or in part, using a voice recognition dictation system. Departure Departure: Impression: Primary Impression: Acute renal failure Additional Impressions: Cirrhosis of liver with ascites Multiple sclerosis Disposition: 02 SHORT TERM [facility] ([facility]) Condition: STABLE Referrals: CHARLIE NIELSEN MD (PCP) Problem Qualifiers RUBEN CAMPOS DO May 04, 2021 12:57
--- NOTE | 2021-05-04 14:20 | RAD ---
EXAMINATION: CT ABDOMEN+PELVIS WO CLINICAL HISTORY: URINARY RETENTION, ABD DISTENTION TECHNIQUE: Non-IV contrast imaging of the abdomen and pelvis was performed using standard technique, scanning from just above the dome of the diaphragm to the symphysis pubis. Unenhanced imaging is crocker ited for the evaluation of some intra-abdominal and pelvic pathology. CT Dose Reduction Employed: One or more of the following individualized dose reduction techniques wer e utilized for this examination: 1. Automated exposure control 2. Adjustment of the mA and/or kV ac cording to patient size 3. Use of iterative reconstruction technique. COMPARISON: 05/17/2018 FINDINGS: Coronary atherosclerotic calcification, incompletely evaluated. Mild bibasilar subsegmental atelectas is and/or scarring. Small nodular liver, consistent with cirrhosis. Gallbladder not definitively visualized and likely quiñones rgically absent. Pancreas, spleen, and adrenal glands unremarkable. 2.1 cm calculus in the left renal pelvis with moderate caliectasis versus renal sinus cyst in the upp er pole, similar to prior study. Additional smaller left renal calculi inferior only. Diffuse left re nal cortical atrophy with small cyst in the mid to lower pole. Stable appearance of the right kidney. Decompressed urinary bladder suboptimally evaluated. Uterus and adnexa unremarkable. No dilated bowel. Appendix not definitively visualized. Moderate to large hiatal hernia. Moderate ascites throughout the abdomen with extension into the hiatal hernia. Arterial atherosclerot ic calcification without aneurysm. Mild/moderate anasarca. Multilevel thoracolumbar degenerative changes and mild/moderate levoconvex cu rvature in the lumbar spine. Diffuse generalized osteopenia. Sclerotic density in the superolateral T 10 vertebral body, similar to prior study. Partially visualized subtle medullary sandy in the left hip. IMPRESSION: Morphologic changes of the liver consistent with cirrhosis and moderate ascites and anasarca. Multiple additional nonacute findings as described. Electronically signed by: Amanuel Arguelles DO (05/04/2021 2:17 PM) [facility]
[2021-05-04 14:34] LABS: BASO # 0.1 x10^3/uL (0.0-0.2); BASO % 1 % (0-3); EOS % 0 % (0-3); HEMATOCRIT 32.2 % (36.0-47.0); HEMOGLOBIN 10.1 g/dL (12.0-15.5); LYMPH % 9 % (24-48); MEAN CORPUSCULAR HEMOGLOBIN 24 pg (25-35); MEAN CORPUSCULAR HGB CONC 31 g/dL (31-37); MEAN CORPUSCULAR VOLUME 75 fL (79-100); MONO # 1.3 x10^3/uL (0.0-1.1); MONO % 12 % (0-9); NEUT # 8.1 x10^3uL (1.8-7.7); NEUT % 77 % (31-73); PLATELET COUNT 237 x10^3/uL (140-400); RED BLOOD COUNT 4.28 x10^6/uL (3.50-5.40); RED CELL DISTRIBUTION WIDTH 25.2 % (11.5-14.5); WHITE BLOOD COUNT 10.6 x10^3/uL (4.0-11.0)
[2021-05-04 14:36] LABS: CALCIUM 7.7 mg/dL (8.5-10.1); CREATININE 5.3 mg/dL (0.6-1.0); GFR 7.8; POTASSIUM 4.1 mmol/L (3.5-5.1)
[2021-05-04 14:41] LABS: ALBUMIN 2.4 g/dL (3.4-5.0); ALBUMIN/GLOBULIN RATIO 0.6 (1.0-1.7); TOTAL BILIRUBIN 1.3 mg/dL (0.2-1.0); TOTAL PROTEIN 6.5 g/dL (6.4-8.2)
[2021-05-04 15:03] LABS: PLT ESTIMATE ADEQUATE (ADEQUATE)
[2021-05-04 15:05] LABS: ANISOCYTOSIS PRESENT; HYPOCHROMIA PRESENT; MICROCYTOSIS PRESENT; POIKILOCYTOSIS PRESENT
[2021-05-04 15:06] LABS: TARGET CELLS PRESENT
[2021-05-04] MEDS: IV NORMAL SALINE 1,000ML 1,000 ML IV ONE (15:46)
[2021-05-04 17:50] VITALS: BP 111/76
== END 2021-05-04 17:00 | disposition short-term general hospital (02) ==
LOC: ER 12:46
DX: N17.9 Acute kidney failure, unspecified (principal); K74.60 Unspecified cirrhosis of liver; G35 Multiple sclerosis; Z88.0 Allergy status to penicillin; Z88.2 Allergy status to sulfonamides
CPT/HCPCS: 36415; 74176; 80053; 85025; 96360; 99285; J7030